=== PATIENT | female | born 1955 | race Caucasian/White ===

== ENCOUNTER → 2020-07-18 10:43 | Outpatient (CLI) | payer OTHER, SELFPAY ==
[2020-07-18] MEDS: COVID-19 VACC #1, MRNA(MOD) 100 MCG/0.5 ML VIAL IM (10:52)
== END ==
PROVIDERS: Visit Provider Internal Medicine
DX: Z23 Encounter for immunization (principal)
CPT/HCPCS: 0011A; 91301

== ENCOUNTER → 2020-08-15 08:04 | Outpatient (CLI) | payer OTHER, SELFPAY ==
[2020-08-15] MEDS: COVID-19 VACC #2, MRNA(MOD) 100 MCG/0.5 ML VIAL IM (08:07)
== END ==
PROVIDERS: PCP Student in an Organized Health Care Education/Training Program; Visit Provider Internal Medicine
DX: Z23 Encounter for immunization (principal)
CPT/HCPCS: 0012A; 91301

== ENCOUNTER 2020-09-28 08:40 | Emergency (ER) | payer OTHER, SELFPAY ==
[2020-09-28 08:49] VITALS: BP 146/92; PULSE 89; RESP 18; TEMP 37.1; O2SAT 98; BMI 43.9
--- NOTE | 2020-09-28 08:56 | DI.CT.S_ITS ---
PROCEDURE: CT ABDOMEN PELVIS W CON INDICATIONS: IV contrast only/lower abdominal pain TECHNIQUE: After the administration of intravenous contrast, 5 mm thick sections acquired from the diaphragm to the symphysis. 5 mm coronal and sagittal reformats were acquired. For radiation dose reduction, the following was used: automated exposure control, adjustment of mA and/or kV according to patient size. COMPARISON: None. FINDINGS: Image quality: Excellent. ABDOMEN: Lung bases: Lung bases are clear. Heart size is normal. Solid organs: Liver is normal in size and enhancement. Gallbladder has been removed. Biliary system is non dilated. Pancreas enhances normally. Spleen is normal in size and demonstrates a low-density focus within its midportion, as on series 2, image 29 that measures 1.4 cm. There is a left adrenal nodule seen, as on series 2, image 21 measuring 2.8 by 1.6 cm. No right adrenal nodules. Kidneys demonstrate normal size and enhancement, without hydronephrosis. Peritoneum and bowel: Moderate to prominent bowel wall thickening can be seen involving the sigmoid colon, with surrounding inflammatory change. Diverticula formation can be seen within this region. No free air is seen to suggest perforation. No loculated abscess collection can be seen. No other areas of bowel wall thickening can be seen. No dilated loops of small bowel. Nodes and vessels: No retroperitoneal or mesenteric adenopathy by size criteria. Aorta and inferior vena cava are normal in size. Miscellaneous: A mild periumbilical hernia is seen, containing fat. PELVIS: Genitourinary: Bladder wall thickening is seen superiorly. The uterus appears normal for age. No adnexal masses are seen. Miscellaneous: No inguinal hernias or adenopathy. Bones: No suspicious bony lesions. No vertebral body compression fractures. Mild levoconvex scoliotic curvature is noted. Degenerative changes are seen throughout, which are worst at the L3-L4 and L4-L5 levels. IMPRESSION: Moderate to prominent sigmoid diverticulitis, without mayte findings of perforation. No drainable abscess can be seen. When clinically appropriate (following adequate treatment of the patient's current clinical episode) a colonoscopy is recommended for further evaluation for a potential underlying mass (if not already recently done). Bladder wall thickening is seen superiorly. This is considered to be reactive to the diverticulitis. 1.4 cm splenic lesion, which may be related to a hemangioma. 2.8 cm left adrenal nodule seen. When clinically appropriate, a follow-up adrenal protocol MRI or CT would be recommended for further evaluation (assuming that there is no contraindication). Incidental note is made of: Cholecystectomy Fat containing periumbilical hernia Levoconvex scoliotic curvature Focal lower lumbar spine degenerative change Dictated by: Derick Zhou M.D. on 09/28/2020 at 8:56 Approved by: Derick Zhou M.D. on 09/28/2020 at 9:01
[2020-09-28 08:59] VITALS: O2SAT 97
[2020-09-28 09:00] VITALS: PULSE 90; O2SAT 97
--- NOTE | 2020-09-28 09:03 | ED_ITS ---
HPI - Abdominal Pain General Chief Complaint: Abdominal Pain Stated Complaint: stomach pain Time Seen by Provider: 09/28/20 08:45 Source: patient Mode of arrival: Wheelchair Limitations: no limitations History of Present Illness HPI narrative: Patient drove self here. Complains suprapubic lower abdominal pain starting this past . Three days ago. Nausea but no vomiting. No diarrhea. No bloody or black stools. Has had dark urine. No dysuria. Patient states feels like diverticulitis in the past. No prior surgery for diverticulitis. Last treated for diverticulitis 3 years ago. Has not been admitted for diverticulitis in the past. No fever chills cough cold congestion. Related Data Previous Rx's Medication Instructions Recorded ciprofloxacin HCl 500 mg PO BID #14 tab 09/28/20 hydrocodone-acetaminophen 1 tab PO Q6H PRN #20 tab 09/28/20 metronidazole 500 mg PO BID #14 tab 09/28/20 Allergies Allergy/AdvReac Type Severity Reaction Status Date / Time No Known Drug Allergies Allergy Verified 09/28/20 08:49 Review of Systems Review of Systems Narrative: GENERAL: Denies chills, fatigue, malaise, fever, sweats. HEENT: Denies sinus pain, ear pain, sore throat RESPIRATORY: Denies dyspnea, cough CARDIOVASCULAR: Denies chest pain, palpitations GASTROINTESTINAL: Denies nausea, vomiting, abdominal pain : Denies dysuria, frequency, hematuria MUSCULOSKELETAL: denies muscle or bony pain SKIN: Denies rash, skin lesions NEUROLOGIC: Denies weakness, numbness ROS Unobtainable: All systems reviewed & are unremarkable except as noted in HPI and below Patient History Social History Smoking Status: Never smoker Smoking Status: Never smoker alcohol intake frequency: other Substance Use Type: does not use Exam Narrative Exam Narrative: GENERAL: in no distress, not toxic not dyspneic HEAD: Normocephalic. EYES: Pupils equal round No scleral icterus. No injection no discharge ENT: Mucous membranes moist. NECK: Trachea midline. CARDIOVASCULAR: Regular rate and rhythm without murmurs RESPIRATORY: Clear to auscultation. Breath sounds equal bilaterally. No wheezes, rales, or rhonchi. GASTROINTESTINAL: Abdomen soft, reproducible suprapubic tenderness no peritoneal signs bowel sounds present. EXTREMITIES: No gross deformities. BACK: No flank tenderness. NEURO: AOx4. SKIN: Warm and dry PSYCH: Not anxious, is cooperative Initial Vital Signs Initial Vital Signs: Vital Signs Temperature 98.8 F 09/28/20 08:49 Pulse Rate 89 09/28/20 08:49 Respiratory Rate 18 09/28/20 08:49 Blood Pressure 146/92 H 09/28/20 08:49 Pulse Oximetry 98 09/28/20 08:49 Course Course Course Narrative: No new issues during course of stay Orders Ordered: ED Orders 09/28/20 08:50 Complete Blood Count AUTO DIFF Stat Comprehensive Metabolic Panel Stat 09/28/20 08:56 CT abdomen pelvis w con Stat 09/28/20 09:04 Urine Culture Stat Urine Microscopic Stat Discontinued Medications Ciprofloxacin (Ciprofloxacin 250 Mg Tablet) 500 mg PO NOW ONE Stop: 09/28/20 10:20 Last Admin: 09/28/20 10:25 Dose: 500 mg Documented by: SHOLA Sodium Chloride (Normal Saline 0.9%) 1,000 mls @ 1,000 mls/hr IV BOLUS ONE Stop: 09/28/20 09:54 Last Infusion: 09/28/20 10:18 Dose: 0 mls/hr Documented by: Admin: 09/28/20 09:14 Dose: 1,000 mls/hr Documented by: SHOLA Ketorolac Tromethamine (Ketorolac 30 Mg/Ml Vial) 15 mg IV NOW ONE Stop: 09/28/20 09:15 Last Admin: 09/28/20 09:20 Dose: 15 mg Documented by: SHOLA Metronidazole (Metronidazole 500 Mg Tablet) 500 mg PO NOW ONE Stop: 09/28/20 10:20 Last Admin: 09/28/20 10:25 Dose: 500 mg Documented by: SHOLA Ondansetron HCl (Ondansetron 4 Mg/2 Ml Inj) 4 mg IV NOW ONE Stop: 09/28/20 09:16 Last Admin: 09/28/20 09:20 Dose: 4 mg Documented by: SHOLA Reevaluation(s) Reevaluation #1: Patient states pain much better after Toradol. She does not want be admitted. She would like to try outpatient therapy for diverticulitis. Agrees with referral for colonoscopy. She does have a family doctor as well. Exam and laboratory results are reassuring. Patient not toxic. Time: 10:20 Vital Signs Vital signs: Vital Signs - 8 hr 09/28/20 08:49 09/28/20 08:59 09/28/20 09:00 Temperature 98.8 F Pulse Rate 89 90 Respiratory Rate 18 Blood Pressure 146/92 H Pulse Oximetry 98 97 97 09/28/20 09:22 09/28/20 09:30 09/28/20 10:00 Temperature Pulse Rate 79 78 75 Respiratory Rate Blood Pressure 119/64 120/68 Pulse Oximetry 97 94 95 MDM - Abdominal Pain Differential Diagnosis Differential diagnosis: Likely abdominal pain, acute appendicitis, diverticuli tis, gastroenteritis and small bowel obstruction Lab Data Attestation: I reviewed the patient's lab results. Result diagrams: 09/28/20 08:50 09/28/20 08:50 Labs: Lab Results 09/28/20 09/28/20 09/28/20 Range/Units 08:50 08:50 09:04 WBC 11.2 H (4.5-11.0) X10^3/uL RBC 4.76 (4.0-5.2) X10^6/uL Hgb 12.4 (12.0-16.0) g/dL Hct 37.7 (36-46) % MCV 79.1 L (80-100) fL MCH 26.0 (26-34) PG MCHC 32.9 (30-36) % RDW 13.2 (11.6-14.8) % Plt Count 229 (150-400) X10^3/uL Neut % (Auto) 81.3 H (50-75) % Lymph % (Auto) 9.3 L (25-40) % [place] % (Auto) 7.7 (3-14) % Eos % (Auto) 0.7 L (2-4) % Baso % (Auto) 1.0 (0-2) % Neut # (Auto) 9100 H (2730-5982) /uL Lymph # (Auto) 1000 L (1927-1528) /uL [place] # (Auto) 900 (0-900) /uL Eos # (Auto) 100 (0-450) /uL Baso # (Auto) 100 (0-100) /uL Sodium 137 (137-145) mmol/L Potassium 3.9 (3.4-5.1) mmol/L Chloride 103 (98-107) mmol/L Carbon Dioxide 27 (22-32) mmol/L BUN 11 (7-17) mg/dL Creatinine 0.78 (0.52-1.04) mg/dL Estimated GFR > 60.0 (>60) mL/min BUN/Creatinine Ratio 14.1 (6-22) Glucose 120 H (80-110) mg/dL Calcium 9.4 (8.4-10.2) mg/dL Total Bilirubin 0.6 (0.2-1.3) mg/dL AST 18 (14-36) IU/L ALT 14 (<35) IU/L Alkaline Phosphatase 107 (38-126) U/L Total Protein 7.6 (6.3-8.2) g/dL Albumin 4.1 (3.5-5.0) g/dL Globulin 3.5 (1.7-4.1) g/dL Albumin/Globulin Ratio 1.2 (1.0-2.8) Urine RBC 1-5/hpf (0-5/HPF) Urine WBC 1-5/hpf (0-5/HPF) Ur Squamous Epith Cells None seen (0-5/HPF) Ur Transition Epith Cell 0-1/hpf (0-5/HPF) Ur Renal Epithelial Cell 1-5/hpf H (0-1/HPF) Urine Bacteria None seen (None) Urine Mucus 3+ H (Negative) Ur Culture Indicated? Specimen cultured Point of care testing: Urine Dip Bedside Urine Glucose Negative Bedside Urine Bilirubin + 1 Bedside Urine Ketone +/- 5 Urine Specific [place] 1.030 Bedside Urine Occult Blood + Bedside Urine pH 6.0 Bedside Urine Protein ++ 100 Bedside Urine Urobilinogen - Negative Bedside Urine Nitrite - Negative Bedside Urine Leukocytes +/- [address] scan - abdomen/pelvis: Radiologist's Impression: [address] [id number] Scan ReportSigned Patient: Selena Oleary#: [id number]: 1955cct:[id number]/Sex: 64 / FDate of Service: 09/28/20Loc: EDAccession Number: [id number] Procedure: CT abdomen pelvis w con Ordering Provider: Hal Hartman MD PROCEDURE: CT ABDOMEN PELVIS W CON INDICATIONS: IV contrast only/lower abdominal pain TECHNIQUE: After the administration of intravenous contrast, 5 mm thick sections acquired f rom the diaphragm to the symphysis. 5 mm coronal and sagittal reformats were acquired. For radiation dose reduction, the following was used: automated exposure control, adjustment of mA and/or kV according to patient size. COMPARISON: None. FINDINGS: Image quality: Excellent. ABDOMEN: Lung bases: Lung bases are clear. Heart size is normal. Solid organs: Liver is normal in size and enhancement. Gallbladder has been removed. Biliary system is non dilated. Pancreas enhances normally. Spleen is normal in size and demonstrates a low-density focus within its midportion, as on series 2, image 29 that measures 1.4 cm. There is a left adrenal nodule seen, as on series 2, image 21 measuring 2.8 by 1.6 cm. No right adrenal nodules. Kidneys demonstrate normal size and enhancement, without hydronephrosis. Peritoneum and bowel: Moderate to prominent bowel wall thickening can be seen involving the sigmoid colon, with surrounding inflammatory change. Diverticula formation can be seen within this region. No free air is seen to suggest perforation. No loculated abscess collection can be seen. No other areas of bowel wall thickening can be seen. No dilated loops of small bowel. Nodes and vessels: No retroperitoneal or mesenteric adenopathy by size criteria. Aorta and inferior vena cava are normal in size. Miscellaneous: A mild periumbilical hernia is seen, containing fat. PELVIS: Genitourinary: Bladder wall thickening is seen superiorly. The uterus appears normal for age. No adnexal masses are seen. Miscellaneous: No inguinal hernias or adenopathy. Bones: No suspicious bony lesions. No vertebral body compression fractures. M ild levoconvex scoliotic curvature is noted. Degenerative changes are seen throughout, which are worst at the L3-L4 and L4-L5 levels. IMPRESSION: Moderate to prominent sigmoid diverticulitis, without mayte findings of perforation. No drainable abscess can be seen. When clinically appropriate (following adequate treatment of the patient's current clinical episode) a colonoscopy is recommended for further evaluation for a potential underlying mass (if not already recently done). Bladder wall thickening is seen superiorly. This is considered to be reactive to the diverticulitis. 1.4 cm splenic lesion, which may be related to a hemangioma. 2.8 cm left adrenal nodule seen. When clinically appropriate, a follow-up adrenal protocol MRI or CT would be recommended for further evaluation (assuming that there is no contraindication). Incidental note is made of: Cholecystectomy Fat containing periumbilical hernia Levoconvex scoliotic curvature Focal lower lumbar spine degenerative change Dictated by: Derick Zhou M.D. on 09/28/2020 at 8:56 Approved by: Derick Zhou M.D. on 09/28/2020 at 9:01 MDM Narrative Medical decision making narrative: Appropriate for discharge home. Laboratory studies reassuring. Patient does not want to be admitted. Would like to try outpatient therapy as she usually does. Not toxic at discharge. Discharge Plan Departure Patient Disposition: Home Clinical Impression: Diverticulitis Instructions: DI for Diverticulitis Activity Restrictions/Additional Instructions: Return if worse if any questions or concerns. Prescriptions have been sent to your [facility] here in [facility] call provided general surgery office on Tuesday for possible and colonoscopy after treatment of diverticulitis. No driving or operating machinery when taking pain medication. Do not take any alcohol products when taking current antibiotics. It will make you very sick Prescriptions: New metronidazole 500 mg tablet 500 mg PO BID Qty: 14 RF: 0 ciprofloxacin HCl 500 mg tablet 500 mg PO BID Qty: 14 RF: 0 hydrocodone-acetaminophen 5-325 mg tablet 1 tab PO Q6H PRN (Reason: pain) Qty: 20 RF: 0 Referrals: Zheng Glynn MD [Primary Care Provider] - Emil Stuart MD [Physician] -
[2020-09-28 09:09] LABS: Bacteria Urine None Seen
[2020-09-28 09:11] LABS: Add Manual Diff / Slide Review NO; Basophils Absolute Auto 100 /uL (0-100); Eosinophils Absolute Auto 100 /uL (0-450); Eosinophils Percent Auto 0.7 % (2-4); Hematocrit 37.7 % (36-46); Hemoglobin 12.4 g/dL (12.0-16.0); Lymphocytes Absolute Auto 1000 /uL (1100-4500); Lymphocytes Percent Auto 9.3 % (25-40); Mean Corpuscular HGB Conc 32.9 % (30-36); Mean Corpuscular Volume 79.1 fL (80-100); Monocytes Absolute Auto 900 /uL (0-900); Monocytes Percent Auto 7.7 % (3-14); Neutrophils Absolute Auto 9100 /uL (1500-7000); Neutrophils Percent Auto 81.3 % (50-75); Platelet Count 229 X10^3/uL (150-400); Red Blood Cell Count 4.76 X10^6/uL (4.0-5.2); Red Cell Distribution Width 13.2 % (11.6-14.8); White Blood Cell Count 11.2 X10^3/uL (4.5-11.0)
[2020-09-28 09:13] LABS: Alanine Aminotransferase 14 IU/L (<35); Albumin 4.1 g/dL (3.5-5.0); Albumin Globulin Ratio 1.2 (1.0-2.8); Alkaline Phosphatase 107 U/L (38-126); Aspartate Aminotransferase 18 IU/L (14-36); BUN Creatinine Ratio 14.1 (6-22); Bilirubin Total 0.6 mg/dL (0.2-1.3); Blood Urea Nitrogen 11 mg/dL (7-17); Calcium 9.4 mg/dL (8.4-10.2); Carbon Dioxide 27 mmol/L (22-32); Chloride 103 mmol/L (98-107); Estimated Glomerular Filt Rate > 60.0 mL/min (>60); Globulin 3.5 g/dL (1.7-4.1); Glucose 120 mg/dL (80-110); HEMOLYSIS < 15 (0-50); Potassium 3.9 mmol/L (3.4-5.1); Sodium 137 mmol/L (137-145); Total Protein 7.6 g/dL (6.3-8.2)
[2020-09-28] MEDS: SODIUM CHLORIDE 0.9% 1,000 ML 1000 ML IV (09:14)
[2020-09-28] MEDS: KETOROLAC 30 MG/ML VIAL 15 MG IV (09:20)
[2020-09-28] MEDS: ONDANSETRON 4 MG/2 ML INJ IV (09:20)
[2020-09-28 09:22] VITALS: BP 119/64; PULSE 79; O2SAT 97
[2020-09-28 09:22] LABS: Mucus Urine 3+ (Negative); RBC Urine 1-5/HPF (0-5/HPF); Renal Epithelial Cells Urine 1-5/HPF (0-1/HPF); Squamous Epithelial Cell Urine None Seen (0-5/HPF); Transitional Epi Cells Urine 0-1/HPF (0-5/HPF); WBC Urine 1-5/HPF (0-5/HPF)
[2020-09-28 09:23] LABS: Culture Indicated Urine Specimen Cultured
[2020-09-28 09:30] VITALS: BP 120/68; PULSE 78; O2SAT 94
[2020-09-28 10:00] VITALS: PULSE 75; O2SAT 95
[2020-09-28] MEDS: CIPROFLOXACIN 250 MG TABLET 500 MG PO (10:25)
[2020-09-28] MEDS: metroNIDAZOLE 500 MG TABLET PO (10:25)
--- NOTE | 2020-09-28 10:38 | PC.NURSE ---
patient expressed concern about prescriptions for pain medications as she is on a chronic pain medication contract. Advised patient to continue normal pain medication under contract and dispose of our RX for pain medication.
== END 2020-09-28 10:42 | disposition home or self-care (01) ==
PROVIDERS: Emergency Provider Emergency Medicine; PCP Student in an Organized Health Care Education/Training Program
DX: K57.90 Diverticulosis of intestine, part unspecified, without perforation or abscess without bleeding (principal); R11.0 Nausea
CPT/HCPCS: 36415; 74177; 80053; 81003; 81015; 85025; 87086; 96361; 96374; 96375; 99284; J1885; J2405; Q9967

== ENCOUNTER 2020-10-20 07:43 | Emergency (ER) | payer OTHER, MEDICAID, SELFPAY ==
[2020-10-20 07:54] VITALS: BP 131/75; PULSE 92; RESP 18; TEMP 37; O2SAT 98; BMI 43.0
--- NOTE | 2020-10-20 08:09 | DI.CT.S_ITS ---
PROCEDURE: CT ABDOMEN PELVIS W CON INDICATIONS: lower abd, suprapubic pain, diverticulitis getting worse TECHNIQUE: After the administration of intravenous contrast, axial sections acquired from the lung bases to the pubic symphysis. Coronal and sagittal reformats were performed. For radiation dose reduction, the following was used: automated exposure control, adjustment of mA and/or kV according to patient size. COMPARISON: [facility], CT, CT ABDOMEN PELVIS W CON, 09/28/2020, 9:06. FINDINGS: Image quality: Excellent. Lung bases: Unremarkable. Small hiatal hernia. Heart: No significant findings. ABDOMEN: Liver: Unremarkable. Gallbladder: Surgically absent. Biliary ducts: Unremarkable. Pancreas: Unremarkable. Spleen: A 1.5 cm low-density nodule in spleen appears unchanged. Adrenal Glands: There is a 1.6 x 3.1 cm left adrenal mass. Mild thickening of the medial limb of the right adrenal. Kidneys and Ureters: Unremarkable. Stomach and Bowel: Stomach, small bowel loops, and colon are normal in caliber. There are numerous colonic diverticula. There is colonic wall thickening and mild pericolonic stranding in sigmoid colon consistent with diverticulitis. There is a complex fluid collection with pockets of air consistent with an abscess adjacent to the sigmoid colon anterior to uterus and superior to the urinary bladder, measuring 4.7 cm AP x 2.3 cm transverse x 1.7 cm cephalocaudal. This finding is new. Peritoneum: No abnormal intraperitoneal fluid. No free air. Ventral Wall: Tiny fat containing umbilical hernia. Abdominal Nodes: No retroperitoneal or mesenteric adenopathy by size criteria. Vessels: Aorta and inferior vena cava are normal in size. PELVIS: Pelvic Organs: Uterus is unremarkable. No adnexal mass. No pathological free-fluid in pelvis. Bladder: Bladder wall is thickened, involving the bladder dome and left anterior lateral bladder wall adjacent to the diverticular abscess. Pelvic Nodes: No enlarged lymph nodes. Miscellaneous: No hernias are seen. Bones: Unremarkable. Degenerative changes noted in thoracic and lumbar spine. IMPRESSION: 1. Persistent colonic wall thickening and mild pericolonic stranding in sigmoid colon consistent with diverticulitis. After adequate treatment of diverticular disease, a colonoscopy suggest as colon cancer could have a similar imaging appearance. 2. There is a new abscess developed since the last exam measuring 4.7 x 2.3 x 1.7 cm. 3. Bladder wall thickening involving the bladder dome and the anterior left bladder wall adjacent to the diverticular abscess, most likely related to direct spread of infection/inflammation from diverticulitis. There is no CT findings to suggest colovesical fistula at this time. 4. A 1.6 x 3.1 cm left adrenal mass. Recommend adrenal protocol CT or MRI for further evaluation. 5. A indeterminate 1.5 cm low-density nodule in spleen. The result was discussed with Dr. Lin. Dictated by: Marcie Ramon M.D. on 10/20/2020 at 9:33 Approved by: Marcie Ramon M.D. on 10/20/2020 at 10:10
--- NOTE | 2020-10-20 08:10 | ED_ITS ---
HPI - Abdominal Pain General Chief Complaint: Abdominal Pain Stated Complaint: diverticulitis Time Seen by Provider: 10/20/20 08:00 Source: patient Mode of arrival: Ambulatory Limitations: no limitations History of Present Illness HPI narrative: This is a 64 year old female comes emergency department with concern for worsening diverticulitis. Patient states she was seen here about 3 weeks ago. She is having similar diverticulitis symptoms for sort of suprapubic region. Patient had CT imaging which did show moderate to prominent sigmoid diverticulitis and she was started on a 2 antibiotic regimen for 10 days. Patient states she started to have some improvement in. She completed her antibiotics but since has had recurrent pain in the some location which has been getting worse and worse. She states she was unable to sleep last night secondary to the pain felt it was time to return. She denies any fevers or chills. She has had some mild nausea. She denies any vomiting. She states the pain is localized to the suprapubic area and it feels like it is behind her bladder. She notes that she does have an increase in pain immediately after she urinates intra-abdominally. Patient denies any dysuria, frequency or urgency. She states she has had loose non formed stools, she denies any melena or he matochezia. Patient states she does have a history of hysterectomy and cholecystectomy. She also states typically in the past she has been at least 14 days of antibiotics she has had multiple episodes in the past most recently 3 years ago. She is unsure if she was on a 2 antibiotic regimen or single regimen in the past. She does take opioids chronically for chronic back pain. She denies any allergies to medications. Patient is also anxious as she is moving to [place] in the next two days. Related Data Previous Rx's Medication Instructions Recorded ciprofloxacin HCl 500 mg PO BID #14 tab 09/28/20 hydrocodone-acetaminophen 1 tab PO Q6H PRN #20 tab 09/28/20 metronidazole 500 mg PO BID #14 tab 09/28/20 ciprofloxacin HCl 500 mg PO Q12H #28 tab 10/20/20 metronidazole [Flagyl] 500 mg PO TID 14 Days #42 tab 10/20/20 Allergies Allergy/AdvReac Type Severity Reaction Status Date / Time No Known Drug Allergies Allergy Verified 09/28/20 08:49 Review of Systems Review of Systems ROS Unobtainable: All systems reviewed & are unremarkable except as noted in HPI and below Patient History Social History Smoking Status: Never smoker Smoking Status: Never smoker alcohol intake frequency: other Substance Use Type: does not use Exam Narrative Exam Narrative: GENERAL: Alert and oriented x three, female with BMI of 43 in mild distress. Patient ambulated into the department. She does use a cane. HEENT: Head normocephalic, atraumatic, EOMI, pupils reactive, face symmetric, moist mucous membranes NECK: Supple, full range of motion CARDIOVASCULAR: Regular rate and rhythm without murmurs, rubs or gallops. RESPIRATORY: Breath sounds equal bilaterally, no wheezes rales or rhonchi. ABDOMEN: Soft, positive for left and right lower quadrant tenderness but most significantly suprapubically. Normoactive bowel sounds all 4 quadrants. No guarding or rebound, rigidity, no mass. : No CVA tenderness EXTREMITIES: Normal range of motion, no clubbing or edema. Neurovascularly intact NEUROLOGICAL: Cranial nerves II through XII grossly intact. Moving all extremities SKIN: Warm, dry, no petechiae, no rashes or lesions. Initial Vital Signs Initial Vital Signs: Vital Signs Temperature 98.6 F 10/20/20 07:54 Pulse Rate 92 H 10/20/20 07:54 Respiratory Rate 18 10/20/20 07:54 Blood Pressure 131/75 10/20/20 07:54 Pulse Oximetry 98 10/20/20 07:54 Course Orders Ordered: Discontinued Medications Ciprofloxacin (Ciprofloxacin 250 Mg Tablet) 500 mg PO NOW ONE Stop: 10/20/20 10:51 Last Admin: 10/20/20 11:20 Dose: 500 mg Documented by: [email or web address] Sodium Chloride (Normal Saline 0.9%) 1,000 mls @ 150 mls/hr IV CONT SUDEEP Last Admin: 10/20/20 11:19 Dose: Not Given Documented by: [email or web address] Piperacillin Sod/Tazobactam (Sod 4.5 gm/ Sodium Chloride) 100 mls @ 200 mls/hr IV NOW ONE Stop: 10/20/20 10:10 Metronidazole (Metronidazole 500 Mg Tablet) 500 mg PO NOW ONE Stop: 10/20/20 10:51 Last Admin: 10/20/20 11:19 Dose: 500 mg Documented by: [email or web address] Reevaluation(s) Reevaluation #1: 64-year-old female diverticulitis which new abscess in comparison from CT several weeks ago. Patient's case was discussed with General surgery who accepts but patient is reluctant to stay and ultimately decides to return home after being seen [id number] by Dr. Hightower. Plan for patient to continue with Cipro Flagyl for the next 14 days. No narcotics so the patient is having acutely worsening symptoms she returns. Patient is aware that her symptoms could worsen and she could have poor outcome. Patient states she is moving tomorrow and cannot stay in the hospital. She was encouraged to return here or go to the closest facility if she has worsening symptoms. Time: 10:57 Consultations Consultation #1: Spoke with Dr. Hightower, she will chest with IR to see if we can drain this percutaneously of Time: 10:17 Vital Signs Vital signs: Vital Signs - 8 hr 10/20/20 11:22 Pulse Rate 80 Respiratory Rate 18 Blood Pressure 141/82 H Pulse Oximetry 99 MDM - Abdominal Pain Lab Data Attestation: I reviewed the patient's lab results. Result diagrams: 10/20/20 08:22 10/20/20 08:22 Labs: Lab Results 10/20/20 10/20/20 Range/Units 08:22 08:22 WBC 10.1 (4.5-11.0) X10^3/uL RBC 4.81 (4.0-5.2) X10^6/uL Hgb 12.5 (12.0-16.0) g/dL Hct 37.3 (36-46) % MCV 77.6 L (80-100) fL MCH 25.9 L (26-34) PG MCHC 33.4 (30-36) % RDW 13.1 (11.6-14.8) % Plt Count 265 (150-400) X10^3/uL Neut % (Auto) 79.1 H (50-75) % Lymph % (Auto) 10.6 L (25-40) % [place] % (Auto) 8.2 (3-14) % Eos % (Auto) 1.4 L (2-4) % Baso % (Auto) 0.7 (0-2) % Neut # (Auto) 8000 H (8477-3545) /uL Lymph # (Auto) 1100 (5555-4874) /uL [place] # (Auto) 800 (0-900) /uL Eos # (Auto) 100 (0-450) /uL Baso # (Auto) 100 (0-100) /uL Sodium 138 (137-145) mmol/L Potassium 4.3 (3.4-5.1) mmol/L Chloride 102 (98-107) mmol/L Carbon Dioxide 30 (22-32) mmol/L BUN 14 (7-17) mg/dL Creatinine 0.73 (0.52-1.04) mg/dL Estimated GFR > 60.0 (>60) mL/min BUN/Creatinine Ratio 19.2 (6-22) Glucose 114 H (80-110) mg/dL Calcium 9.9 (8.4-10.2) mg/dL Total Bilirubin 0.5 (0.2-1.3) mg/dL AST 20 (14-36) IU/L ALT 14 (<35) IU/L Alkaline Phosphatase 99 (38-126) U/L Total Protein 7.7 (6.3-8.2) g/dL Albumin 4.1 (3.5-5.0) g/dL Globulin 3.6 (1.7-4.1) g/dL Albumin/Globulin Ratio 1.1 (1.0-2.8) Lipase 25 (23-300) U/L Point of care testing: Urine Dip Bedside Urine Glucose Negative Bedside Urine Bilirubin - Negative Bedside Urine Ketone - Negative Urine Specific [place] 1.010 Bedside Urine Occult Blood - Negative Bedside Urine pH 6.0 Bedside Urine Protein - Negative Bedside Urine Urobilinogen - Negative Bedside Urine Nitrite - Negative Bedside Urine Leukocytes - Negative Esterase MDM Narrative Medical decision making narrative: 64-year-old female comes in with complaint of increasing abdominal pain after 10 days of Cipro and Flagyl for diverticulitis. Patient completed her course about 10-[address] imaging was obtained with concern for possible abscess which appears to be present today with continued diverticulitis. There does not appear to be a fistula. Patient case was discussed with General surgery who reviewed case with IR and accepts patient for hospitalization. Patient herself politely refuses and plans to return home after discussion face to face with the general surgeon course of action was decided to continue Cipro Flagyl for an additional 14 days with return for any worsening symptoms. Patient is aware that this is not the best choice of action. Discharge Plan Departure Patient Disposition: Home Clinical Impression: Abscess of pelvis, Diverticulitis Activity Restrictions/Additional Instructions: Follow-up with your physician this week for recheck. Included is referral to Dr. Hightower. Your imaging today does show an abscess and it is recommended that the you be kept in the hospital. As you elected to return home please continue antibiotics for 14 additional days. There is a very good possibility that this will be an adequate treatment and you may still need further care in the hospital or with a surgeon or interventional radiologist. Take antibiotics until completely gone. Prescription was sent to [facility] Please return for fevers greater 100.4 F, rapidly worsening pain, lightheadedness or passing out, persistent vomiting, black or bloody stools or other new or concerning symptoms. Prescriptions: New ciprofloxacin HCl 500 mg tablet 500 mg PO Q12H Qty: 28 RF: 0 metronidazole [Flagyl] 500 mg tablet 500 mg PO TID 14 Days Qty: 42 RF: 0 No Action metronidazole 500 mg tablet 500 mg PO BID Qty: 14 RF: 0 ciprofloxacin HCl 500 mg tablet 500 mg PO BID Qty: 14 RF: 0 hydrocodone-acetaminophen 5-325 mg tablet 1 tab PO Q6H PRN (Reason: pain) Qty: 20 RF: 0 Referrals: Zheng Glynn MD [Primary Care Provider] -
[2020-10-20 08:37] LABS: Add Manual Diff / Slide Review NO; Basophils Absolute Auto 100 /uL (0-100); Basophils Percent Auto 0.7 % (0-2); Eosinophils Absolute Auto 100 /uL (0-450); Eosinophils Percent Auto 1.4 % (2-4); Hematocrit 37.3 % (36-46); Hemoglobin 12.5 g/dL (12.0-16.0); Lymphocytes Absolute Auto 1100 /uL (1100-4500); Lymphocytes Percent Auto 10.6 % (25-40); Mean Corpuscular HGB Conc 33.4 % (30-36); Mean Corpuscular Hemoglobin 25.9 PG (26-34); Mean Corpuscular Volume 77.6 fL (80-100); Monocytes Absolute Auto 800 /uL (0-900); Monocytes Percent Auto 8.2 % (3-14); Neutrophils Absolute Auto 8000 /uL (1500-7000); Neutrophils Percent Auto 79.1 % (50-75); Platelet Count 265 X10^3/uL (150-400); Red Blood Cell Count 4.81 X10^6/uL (4.0-5.2); Red Cell Distribution Width 13.1 % (11.6-14.8); White Blood Cell Count 10.1 X10^3/uL (4.5-11.0)
[2020-10-20 08:46] LABS: Alanine Aminotransferase 14 IU/L (<35); Albumin 4.1 g/dL (3.5-5.0); Albumin Globulin Ratio 1.1 (1.0-2.8); Alkaline Phosphatase 99 U/L (38-126); Aspartate Aminotransferase 20 IU/L (14-36); BUN Creatinine Ratio 19.2 (6-22); Bilirubin Total 0.5 mg/dL (0.2-1.3); Blood Urea Nitrogen 14 mg/dL (7-17); Calcium 9.9 mg/dL (8.4-10.2); Carbon Dioxide 30 mmol/L (22-32); Chloride 102 mmol/L (98-107); Estimated Glomerular Filt Rate > 60.0 mL/min (>60); Globulin 3.6 g/dL (1.7-4.1); Glucose 114 mg/dL (80-110); HEMOLYSIS < 15 (0-50); Lipase 25 U/L (23-300); Potassium 4.3 mmol/L (3.4-5.1); Sodium 138 mmol/L (137-145); Total Protein 7.7 g/dL (6.3-8.2)
[2020-10-20 10:15] VITALS: BP 119/57; PULSE 78; RESP 18; O2SAT 97
[2020-10-20] MEDS: metroNIDAZOLE 500 MG TABLET PO (11:19)
[2020-10-20] MEDS: CIPROFLOXACIN 250 MG TABLET 500 MG PO (11:20)
[2020-10-20 11:22] VITALS: BP 141/82; PULSE 80; RESP 18; O2SAT 99
== END 2020-10-20 11:26 | disposition home or self-care (01) ==
PROVIDERS: Emergency Provider Emergency Medicine; PCP Student in an Organized Health Care Education/Training Program
DX: N73.9 Female pelvic inflammatory disease, unspecified (principal); K57.92 Diverticulitis of intestine, part unspecified, without perforation or abscess without bleeding; R11.0 Nausea
CPT/HCPCS: 36415; 74177; 80053; 81003; 83690; 85025; 99283; 99284